=== PATIENT | male | born 1960 | race African-American/Black ===

== ENCOUNTER 2016-06-14 11:17 | Inpatient (IN) | payer MEDICARE, OTHER ==
[~2016-06-14] VITALS: Ht 180.3 cm; Wt 93.2 kg
[2016-06-14] MEDS ORDERED: ASPIRIN 81 MG CHEW TAB ONE (15:41)
[2016-06-14 18:08] VITALS: BP_SYST 130; RESP 18; TEMP 98.2
[2016-06-14] MEDS: HYDROXYUREA 500 MG CAP PO SCH (18:15)
[2016-06-14] MEDS: LISINOPRIL 20 MG TAB PO SCH (18:15)
[2016-06-14] MEDS ORDERED: TRAZODONE 50 MG TAB PO PRN (18:15)
[2016-06-14] MEDS: HCTZ 25 MG TAB PO SCH (18:15)
[2016-06-14 19:00] VITALS: BP_SYST 153; RESP 18; TEMP 97.5
[2016-06-14] MEDS: CLOPIDOGREL 75 MG TAB PO SCH (21:11)
[2016-06-14 23:56] VITALS: BP_SYST 130; RESP 18; TEMP 97.9
[2016-06-15 03:26] VITALS: BP_SYST 122; RESP 18; TEMP 98
[2016-06-15] MEDS: ACETAMINOPHEN 325 MG TAB PO PRN ×3 (06:01→17:59)
[2016-06-15 07:39] VITALS: BP_SYST 134; RESP 18; TEMP 98.3
[2016-06-15] MEDS: HYDROXYUREA 500 MG CAP PO SCH (08:21)
[2016-06-15] MEDS: FOLIC ACID 1 MG TAB PO SCH (08:21)
[2016-06-15] MEDS: CLOPIDOGREL 75 MG TAB PO SCH (08:21)
[2016-06-15] MEDS: HCTZ 25 MG TAB PO SCH (08:21)
[2016-06-15] MEDS: ASPIRIN 81 MG CHEW TAB PO SCH (08:21)
[2016-06-15] MEDS: LISINOPRIL 20 MG TAB PO SCH (08:21)
[2016-06-15 11:31] VITALS: BP_SYST 94; RESP 18; TEMP 97.9
[2016-06-15 15:36] VITALS: BP_SYST 126; RESP 18; TEMP 97.8
[2016-06-15 19:00] VITALS: BP_SYST 137; RESP 18; TEMP 97.7
[2016-06-15 23:20] VITALS: BP_SYST 121; RESP 18; TEMP 98.2
[2016-06-16] MEDS: ACETAMINOPHEN 325 MG TAB PO PRN ×3 (00:46→11:25)
[2016-06-16] MEDS ORDERED: TRAMADOL 50 MG TAB PO ONE (02:10)
[2016-06-16 03:40] VITALS: BP_SYST 142; RESP 18; TEMP 98.4
[2016-06-16 06:00] VITALS: BP_SYST 83
[2016-06-16 06:24] VITALS: BP_SYST 80
[2016-06-16 08:08] VITALS: BP_SYST 135; RESP 18; TEMP 97.9
[2016-06-16] MEDS: HCTZ 25 MG TAB PO SCH (08:26)
[2016-06-16] MEDS: CLOPIDOGREL 75 MG TAB PO SCH (08:27)
[2016-06-16] MEDS: FOLIC ACID 1 MG TAB PO SCH (08:27)
[2016-06-16] MEDS: LISINOPRIL 20 MG TAB PO SCH (08:27)
[2016-06-16] MEDS: HYDROXYUREA 500 MG CAP PO SCH (08:27)
[2016-06-16] MEDS: ASPIRIN 81 MG CHEW TAB PO SCH (08:27)
[2016-06-16 10:18] VITALS: Ht 180.3 cm; Wt 93.2 kg
[2016-06-16 11:39] VITALS: BP_SYST 121; RESP 18; TEMP 98.2
[2016-06-16] MEDS ORDERED: INDOMETHACIN 25 MG CAP PO SCH (12:20)
[2016-06-16] MEDS: [UNRECOGNIZED DRUG - OTHER] IM ONE ×2 (13:22→13:24)
[2016-06-16 13:35] VITALS: BP_SYST 121; RESP 18; TEMP 98.2
== END 2016-06-16 14:15 | disposition home or self-care (01) | DRG 66 ==
LOC: ENRESERVTM → ENRESERVDT → ER 11:17 → ENPENDDIS 15:07 → EMR 15:07 → PCU 17:00
PROVIDERS: ADMIT Internal Medicine; ATTEND Internal Medicine
DX: I63.9 Cerebral infarction, unspecified (principal); I10 Essential (primary) hypertension; D56.3 Thalassemia minor; K21.9 Gastro-esophageal reflux disease without esophagitis; M19.90 Unspecified osteoarthritis, unspecified site; D47.3 Essential (hemorrhagic) thrombocythemia; M10.072 Idiopathic gout, left ankle and foot; I51.7 Cardiomegaly; R20.0 Anesthesia of skin
CPT/HCPCS: 36415; 70450; 70551; 80053; 80061; 84550; 85025; 85610; 85730; 93005; 93880